=== PATIENT | male | born 1950 | race Caucasian/White ===

== ENCOUNTER → 2021-01-06 | Outpatient (CLI) | payer MEDICARE ==
[~2021-01-06] VITALS: Ht 185.4 cm; Wt 77.1 kg
== END ==
LOC: OPSV 12-30 09:00
PROVIDERS: Radiology Diagnostic Radiology
DX: S32.000A Wedge compression fracture of unspecified lumbar vertebra, initial encounter for closed fracture (principal); M81.0 Age-related osteoporosis without current pathological fracture
CPT/HCPCS: 36415; 80048; 96365; J1740